=== PATIENT | male | born 1965 | race African-American/Black ===

== ENCOUNTER 2021-01-16 10:28 | Emergency (ER) | payer OTHER ==
[~2021-01-16] VITALS: Ht 182.9 cm; Wt 101.0 kg
[~2021-01-16 10:28] MED LIST: ALBU17AE26; FLUT1DIS; GLEEVAC; P20
[2021-01-16 10:44] VITALS: BP 152/102
[2021-01-16] MEDS ORDERED: TOPUD MT (11:24)
== END 2021-01-16 12:19 | disposition home or self-care (01) ==
LOC: ER 10:28
DX: L72.8 Other follicular cysts of the skin and subcutaneous tissue (principal); J45.909 Unspecified asthma, uncomplicated; Z85.9 Personal history of malignant neoplasm, unspecified; Z88.1 Allergy status to other antibiotic agents; Z98.890 Other specified postprocedural states
CPT/HCPCS: 99282

== ENCOUNTER 2021-01-26 04:11 | Emergency (ER) | payer OTHER ==
[~2021-01-26] VITALS: Ht 182.9 cm; Wt 103.0 kg
[~2021-01-26 04:11] MED LIST changes: +TOPUD MT
[2021-01-26 04:55] VITALS: BP 105/68
[2021-01-26] MEDS ORDERED: CLIN300C12 PO (06:27)
== END 2021-01-26 06:53 | disposition home or self-care (01) ==
LOC: ER 04:11
DX: L02.414 Cutaneous abscess of left upper limb (principal); Z79.899 Other long term (current) drug therapy
CPT/HCPCS: 99283; Z7610

== ENCOUNTER 2021-07-30 10:30 | Emergency (ER) | payer OTHER ==
[~2021-07-30] VITALS: Ht 182.9 cm; Wt 98.0 kg
[~2021-07-30 10:30] MED LIST changes: +CLIN300C12 PO
[2021-07-30 10:39] VITALS: BP 168/101
[2021-07-30] MEDS ORDERED: POLY10DR LEFTEYE (11:09)
== END 2021-07-30 11:31 | disposition home or self-care (01) ==
LOC: ER 10:30
DX: H00.016 Hordeolum externum left eye, unspecified eyelid (principal); Z88.1 Allergy status to other antibiotic agents
CPT/HCPCS: 99283; Z7610

== ENCOUNTER 2024-06-13 09:43 | Emergency (ER) | payer MEDICAID, OTHER ==
[~2024-06-13] VITALS: Ht 182.9 cm; Wt 98.0 kg
[~2024-06-13 09:43] MED LIST changes: +CLIN-194 PO; -CLIN300C12 PO; +POLY10DR LEFTEYE
[2024-06-13 10:02] VITALS: O2SAT 99
[2024-06-13] MEDS ORDERED: SULF1TAB48 MT (13:39)
[2024-06-13] MEDS ORDERED: CEPH500C2 MT (13:39)
[2024-06-13] MEDS ORDERED: CLIN-194 MT (13:59)
[2024-06-13] MEDS: BACITRACIN ZINC OINT UDPKT TOP ONE (14:06)
[2024-06-13] MEDS: TETANUS, DIPHTHERIA, PERTUSSIS VAC/PF 0.5ML (>10YR OLD) IM ONE (14:06)
[2024-06-13] MEDS: LIDOCAINE HCL/PF 1% 10 MG/ML 5ML VIAL INFIL ONE (14:06)
[2024-06-13 14:08] VITALS: BP 138/87; PULSE 88; RESP 18; TEMP 36.83628; O2SAT 99
== END 2024-06-13 14:10 | disposition home or self-care (01) ==
LOC: ER 09:43
DX: L02.416 Cutaneous abscess of left lower limb (principal); Z98.890 Other specified postprocedural states; Z79.51 Long term (current) use of inhaled steroids
CPT/HCPCS: 10060; 99283